=== PATIENT | male | born 1965 | race Caucasian/White ===

== ENCOUNTER → 2021-04-03 | Outpatient (REF) ==
--- NOTE | 2021-04-03 15:35 | REP ---
INDICATION: PAIN ARTHRITIS COMPARISON: None. TECHNIQUE: AP, lateral, coned-down views of the lumbar spine. FINDINGS: Osteopenia and moderate multilevel degenerative spondylosis. Alignment and lordosis maintained. No acute fracture/compression injury or subluxation. IMPRESSION: 1. Moderate multilevel degenerative spondylosis. <Electronically signed by Jose L Paris > 04/03/21 5108
== END ==
LOC: M PLAIMG 14:51
PROVIDERS: ATTEND Internal Medicine
DX: M54.9 Dorsalgia, unspecified (principal)